=== PATIENT | male | born 1960 | race Caucasian/White ===

== ENCOUNTER 2020-11-22 19:44 | Inpatient (IN) | payer OTHER ==
[~2020-11-22] VITALS: Ht 182.9 cm; Wt 99.3 kg
[2020-11-22 20:34] LABS: HEMOGLOBIN 14.5 gm/dl (14.0-17.5); RED BLOOD COUNT 4.43 M/UL (4.20-5.50); WHITE BLOOD COUNT 7.2 K/UL (4.5-11.0)
[2020-11-22 20:59] LABS: BUN/CREATININE RATIO 14 (0-10)
[2020-11-23 03:46] LABS: HEMOGLOBIN 13.7 gm/dl (14.0-17.5); RED BLOOD COUNT 4.25 M/UL (4.20-5.50); WHITE BLOOD COUNT 7.1 K/UL (4.5-11.0)
[2020-11-23 04:06] LABS: BUN/CREATININE RATIO 14 (0-10)
--- NOTE | 2020-11-23 04:15 | NUR ---
PATIENT NOT AROUSABLE TO TACTILE OR VERBAL STIMULI. VSS. NEWS CLERK WITH PULSE OX PLACED. UNABLE TO COMPLETE ADMISSION. WILL INFORM AM RN.
[2020-11-23] MEDS ORDERED: SIMVASTATIN20 MG PO (04:39)
[2020-11-23] MEDS ORDERED: LOPRESSOR 25 MG25 MG PO (04:40)
[2020-11-23] MEDS ORDERED: FOSINOPRIL SODI20 MG PO (04:41)
== END 2020-11-24 09:36 | disposition short-term general hospital (02) | DRG 177 ==
LOC: ER1 19:44 → MED SURG 4 11-23 01:55 → CDU 11-23 01:55 → MED SURG 4 11-23 01:55 → CDU 11-23 04:02 → MED SURG 4 11-23 04:02
PROVIDERS: Physician Assistant; ADMIT Internal Medicine
PROC: XW033G6 Introduction of REGN-COV2 Monoclonal Antibody into Peripheral Vein, Percutaneous Approach, New Technology Group 6 (ICD-10-PCS; principal; 2020-11-22)
PROC: XW033E5 Introduction of Remdesivir Anti-infective into Peripheral Vein, Percutaneous Approach, New Technology Group 5 (ICD-10-PCS; 2020-11-23)
PROC: 8E0ZXY6 Isolation (ICD-10-PCS; 2020-11-23)
DX: U07.1 COVID-19 (principal); G93.41 Metabolic encephalopathy; S06.6X0A Traumatic subarachnoid hemorrhage without loss of consciousness, initial encounter; E78.5 Hyperlipidemia, unspecified; W18.30XA Fall on same level, unspecified, initial encounter; Y92.238 Other place in hospital as the place of occurrence of the external cause; I10 Essential (primary) hypertension; E11.9 Type 2 diabetes mellitus without complications; H02.401 Unspecified ptosis of right eyelid; E86.0 Dehydration; Z88.0 Allergy status to penicillin; Z88.6 Allergy status to analgesic agent; Z79.4 Long term (current) use of insulin
CPT/HCPCS: 70450; 71045; 80053; 82009; 82550; 82553; 82728; 82962; 83605; 83735; 83874; 84484; 85025; 93005; 96374; 96375; 99285; J0456; J1644; J1885; J2405; J2550; J2765; J7030; M0243; U0002